=== PATIENT | male | born 1970 | race Caucasian/White ===

== ENCOUNTER 2017-03-01 18:35 | Observation (INO) ==
[2017-03-01] MEDS ORDERED: DILAUDID IV ONE (19:35)
[2017-03-01] MEDS ORDERED: NARCAN 0.4 MG in LR 1,000 ML IV PRN (19:56)
[2017-03-01] MEDS ORDERED: NARCAN IV PRN (19:56)
[2017-03-01] MEDS ORDERED: DILAUDID PCA VIAL IV PRN (19:56)
[2017-03-01] MEDS ORDERED: ZOFRAN IV PRN (19:56)
[2017-03-01] MEDS ORDERED: SODIUM CHLORIDE 0.9% INJ PRN (19:56)
[2017-03-01] MEDS ORDERED: PHENERGAN IV PRN (19:56)
[2017-03-01] MEDS ORDERED: BENADRYL IV PRN (19:56)
[2017-03-01] MEDS ORDERED: ROCEPHIN 1 GM in NS 50 ML IV ONE (20:00)
[2017-03-01] MEDS: LR 1,000 ML IV SCH (20:03)
[2017-03-02] MEDS ORDERED: DECADRON IV ONE (11:00)
[2017-03-02] MEDS: NORCO-10 PO PRN ×2 (16:56→20:22)
[2017-03-02] MEDS: LR 1,000 ML IV SCH (20:23)
[2017-03-02 20:54] VITALS: BP 114/67
== END 2017-03-02 21:02 | disposition home or self-care (01) ==
LOC: DIRADM → 4N 18:35
PROVIDERS: ADMIT Otolaryngology; ATTEND Otolaryngology